=== PATIENT | female | born 1965 | race Caucasian/White ===

== ENCOUNTER 2023-03-28 11:08 | Outpatient (CLI) | payer MEDICARE, SELFPAY ==
[2023-03-28 12:14] LABS: Anion Gap 8 mmol/L (8-16); Blood Urea Nitrogen 11 mg/dL (7-17); Carbon Dioxide 27 mmol/L (22-30); Chloride 101 mmol/L (98-107); Estimated Glomerular Filt Rate > 60; Glucose 108 mg/dL (65-110); Potassium 3.8 mmol/L (3.4-5.0); Sodium 136 mmol/L (137-145)
== END 2023-03-28 11:09 | disposition home or self-care (01) ==
LOC: ANHSURGERY 11:13
PROVIDERS: Anesthesiology; PCP Physician Assistant; Visit Provider Plastic Surgery
DX: Z01.818 Encounter for other preprocedural examination (principal); I10 Essential (primary) hypertension
CPT/HCPCS: 36415; 80048

== ENCOUNTER 2023-03-30 00:29 | Day surgery (SDC) | payer MEDICARE, SELFPAY ==
[2023-03-24 09:28] VITALS: BMI 24.2
--- NOTE | 2023-03-24 09:45 | PC.NURSE ---
Report to the Outpatient Waiting Room, entrance under the green pavilion located off [facility], at time __0600__ on date _03/30/23_. Planned Procedure Time: __0730_. Time changes happen often and if your time is changed the preop area will call you the afternoon before. - You and your visitor will be asked to self-screen and do not enter if you have any COVID symptoms. - A mask is optional within the hospital at this time. Patients may have clear liquids (water, carbonated beverages, clear teas, apple juice) until 3 hours prior to surgery with a maximum of 20 ounces. - No food from midnight until time of surgery - Infants may have breast milk until 4 hours before surgery, formula 6 hours prior to surgery. - Children will be allowed to drink immediately following surgery. If applicable, please bring a bottle or sippy cup to assist with drinking. Juice, water, soda, and popsicles are readily available. For infants on formula, please bring formula the day of surgery. Pacifiers are allowed. Take the following medications with a SIP of water the morning of surgery: BUPROPION, DULOXITINE, GABAPENTIN, LAMOTRIGINE, PAIN PILL IF NEEDED DO NOT STOP ANY OF YOUR OTHER PRESCRIPTION MEDICATIONS PRIOR TO SURGERY ?EXCEPT THE FOLLOWING Medications to discontinue per physician ___VITAMINS AND SUPPLIMENTS Date to take last dose___03/27/23 Please no make-up, nail kazakh, hairspray, perfume, deodorant, or body powder the day of surgery. No jewelry (including any body piercings) or valuables the day of surgery, leave them at home. Please take a shower or bath the night before, or the morning of, surgery with an antibacterial soap. Wear comfortable, loose fitting clothing. Children are encouraged to wear pajamas. - Jewelry must be removed prior to entering the operating room. Rings and piercings that are not removed may be cut off. - The hospital will not accept responsibility for valuables. - Please leave all valuables, including medications, at home the day of surgery. If you are going home after surgery, a licensed sweeper driver must drive you home. - NO public transportation without another adult if you receive anesthesia. - We recommend that an adult stay with you for 24 hours following discharge. - We also recommend that you do not drive, make important decision, drink alcoholic beverages, or take any drugs that were not prescribed by your health care provider for at least 24 hours after your discharge time. For Pediatric surgeries, we recommend two adults accompany the child home. Follow any additional instructions given to you from your surgeon. If you or anyone in your household have experienced Covid symptoms in the past week, please notify your surgeon or the nurse liaison at the phone number below for possible testing. Telephone instructions given to _PATIENT_and asked if any additional questions and then verbalized understanding. Patient advised to call surgeon office or pre surgery nurse liaison [phone] if any additional questions.
[2023-03-30 06:10] VITALS: BP 122/79; PULSE 75; RESP 16; TEMP 36.6; O2SAT 100; BMI 24.6
--- NOTE | 2023-03-30 06:29 | WPDANESEPPF ---
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, R midline tibia Patient Data Age: 57 Gender: F Height: 1.57 m Weight: 60 kg Allergies Allergy/AdvReac Type Severity Reaction Status Date / Time Sulfa (Sulfonamide Allergy Unknown Vomiting Verified 03/30/23 06:25 Antibiotics) Home Medications Medication Instructions Recorded Confirmed Type atenolol 50 mg-chlorthalidone 25 1 tablet PO DAILY 10/25/19 03/24/23 History mg tablet gabapentin 600 mg tablet 600 mg PO TID 10/25/19 03/24/23 History oxycodone-acetaminophen 5 mg-325 1 tablet PO Q4H PRN Pain 10/25/19 03/24/23 History mg tablet potassium chloride 10 mEq 20 meq PO BID 10/25/19 03/24/23 History tablet,extended release (Klor-Con) pyridoxine (vitamin B6) 100 mg 100 mg PO DAILY 10/25/19 03/24/23 History tablet simvastatin 20 mg tablet 20 mg PO DAILY 10/25/19 03/24/23 History medical maijuana 1 inh PO HS 11/02/21 03/24/23 History bupropion HCl 200 mg tablet,12 hr 200 mg PO BID 03/24/23 03/24/23 History sustained-release (Wellbutrin SR) cholecalciferol (vitamin D3) 125 125 mcg PO DAILY 03/24/23 03/24/23 History mcg (5,000 unit) tablet (Vitamin D3) duloxetine 60 mg capsule,delayed 60 mg PO BID 03/24/23 03/24/23 History release ginkgo biloba 60 mg tablet 60 mg PO DAILY 03/24/23 03/24/23 History lamotrigine 150 mg tablet 150 mg PO DAILY 03/24/23 03/24/23 History Patient hx anesthesia problems: none Family hx anesthesia problems: none Results Review: All pre-operative results and documents have been reviewed as part of the pre-operative evaluation. [facility] Past Medical History Medical History Depression Right bundle branch block Vaginal delivery x 2 Surgical History Surgical History H/O neck surgery History of back surgery History of bladder surgery History of carpal tunnel surgery History of elbow surgery History of endometrial ablation History of tubal ligation Hx of pelvic surgery Hx of tonsillectomy S/P knee surgery S/P shoulder surgery Family History Family History Mother Family history of elevated blood lipids Cerebrovascular accident Family history of diabetes mellitus in first degree relative Family history of malignant neoplasm of cervix Grandparent Family history of malignant neoplasm of breast Father Family history of seizure disorder Social History Social History Smoking packs per day: 0.5 Smoking cigarettes per day: 10.0 Years smoked: 40 Smoking pack-years: 20.00 Smoking status: Current every day smoker Tobacco type: cigarettes and e-cigarettes/vaping Second hand tobacco smoke exposure: No Alcohol intake: current Alcohol use details: SOCIAL MOSTLY DURING THE SUMMER Substance use: current Substance use type: marijuana Other substance usage details: MEDICAL DAILY IN EVENING Lack of Transportation: No Lack of Food: Never True Current Housing: I Have Housing Concerned About Future Housing: No Difficulty Paying Gas/Electric Bills: No Difficulty Paying for Meds: No Currently Unemployed: No Education: Trade/Vocational Certificate Difficulty w/ Childcare or Family Care: No Living arrangements: alone Additional living arrangements comments: RECENTLY LOST HER Mary Lou Toure Final PreProcedure Day of Procedure 03/16
[2023-03-30] MEDS: LACTATED RINGERS 1,000 ML 30 ML IV CONT (06:40)
--- NOTE | 2023-03-30 07:15 | SUR.PREOP ---
0715- Made Dr. Chávez aware SCD's and knee high JEN's deferred for patient due to procedure.
--- NOTE | 2023-03-30 07:15 | WPDHPUPDATE1 ---
History and Physical Update Update Date/Time: 03/30/23 07:15 History and Physical has been reviewed, including an updated exam of the patient. There are NO changes in the patient's condition. Risks, benefits, and alternatives have been discussed and questions answered. Patient agrees to proceed with procedure.
--- NOTE | 2023-03-30 08:03 | SUR.OPER ---
Two frozen samples were sent down to pathology per MD's request. Each sample was taken from the sterile field and prepared for transfer by [email or web address], Ranjeet Orellana RN. Samples were transported to main lab by MAURY Linder. Samples were received by Barbie in pathology. This information was telephoned to room 6 by MAURY Linder and confirmed by myself, Ranjeet Orellana RN.
[2023-03-30] MEDS: LIDO 1%/EPINEPHRINE 1:100,000 50 ML VIAL INFILTRATE (08:08)
[2023-03-30 09:11] VITALS: BP 95/73; PULSE 80; RESP 16; O2SAT 100
[2023-03-30] MEDS: oxyCODONE HCL (*CRX) 5 MG TAB IR PO (09:32)
[2023-03-30 09:40] VITALS: BP 108/55; PULSE 81; RESP 16; O2SAT 97
--- NOTE | 2023-03-30 09:45 | P.OP_ITS ---
Procedure Note - Detailed Date of Procedure 03/30/23 Pre-op Diagnosis squamous cell ca L sup pretibia, R midline tibia Post-op Diagnosis Same Procedure Performed 2 cm excision of squamous cell carcinoma of the right distal midline pre tibia with frozen section and full-thickness skin graft 6 sq cm. 3 cm excision of squamous cell carcinoma keratoacanthoma type left superior pre tibia with frozen section and intermediate repair 7 cm. Surgeon Arturo Chávez MD White Kid Buffer Nasreen Anesthesia MAC Indications Biopsy diagnosis Description of Procedure The 2 biopsy sites on the patient's legs were marked in preop with her consent. We discussed donor sites and she left that up to me. She was taken to the operating room where she was placed supine on the operating table. She was given IV sedation. The lower extremities were prepped and draped in the usual fashion. The donor site was chosen on the right upper thigh. Openings were made through the drape on the right upper thigh and the right distal midline pre tibia and the left superior pretibia. The biopsy areas were measured and marked for circular excisions to rid the excision on the right was to be 2 cm in diameter and on the left 3 cm in diameter. Each area was infiltrated with 1% lidocaine with epinephrine. The specimen on the right was taken as a circular ellipse carried to the periosteum. It was marked at the superior aspect with suture for 12:00 p.m. and sent for frozen section. Bleeding points were coagulated. Saline dressing was applied. Attention was turned to the left leg. The left leg the circular excision measuring 3 cm in diameter was taken also to the periosteum. That specimen was marked with a suture for its superior aspect as well. The deep aspect of the specimen was inked with black. That specimen sent for frozen section. The pathology report on each piece confirmed the diagnoses of noted preoperatively and the margins were said to be free. A donor site on the right side was marked and anesthetized. It was determined that the larger wound on the superior aspect of the left pretibial could be undermined and closed with Vicryl and glue. The smaller excision on the right distal midline pre tibia could not be closed directly. A skin graft was harvested from the right thigh partially defatted and inset with chromic suture in the periphery and with quilting stitches. The graft site was then dressed with Aquacel Ag Tegaderm fluffed gauze and 3 in Coban wrap. The donor site on the right side was undermined and closed with intradermal 2-0 Vicryl sutures and skin glue to close the surface. On the left superior pre tibia site closure was accomplished with 2-0 Vicryl intradermal sutures and skin glue to the surface. No dressings were applied to the right thigh or the left pre tibia. The patient was discharged from the operating room in stable condition. She has instructions in wound care and follow-up. She has hydrocodone 05/325 at home. No antibiotics were utilized. Estimated Blood Loss -10.0 Tourniquet Time 0 Drains No Packing No Pathology Yes Complications No immediate complications Condition Stable Disposition Same day
[2023-03-30 10:10] VITALS: BP 118/56; PULSE 74; RESP 16; O2SAT 100
== END 2023-03-30 10:32 | disposition home or self-care (01) ==
PROVIDERS: PCP Physician Assistant; Visit Provider Plastic Surgery
PROC: (CPT 11602; principal; 2023-03-30 07:30)
DX: C44.729 Squamous cell carcinoma of skin of left lower limb, including hip (principal); C44.722 Squamous cell carcinoma of skin of right lower limb, including hip; L73.8 Other specified follicular disorders; L82.1 Other seborrheic keratosis; F32.A Depression, unspecified; F17.210 Nicotine dependence, cigarettes, uncomplicated; F12.90 Cannabis use, unspecified, uncomplicated; Z79.891 Long term (current) use of opiate analgesic; Z98.890 Other specified postprocedural states; Z86.79 Personal history of other diseases of the circulatory system; Z80.49 Family history of malignant neoplasm of other genital organs; Z80.3 Family history of malignant neoplasm of breast; Z82.49 Family history of ischemic heart disease and other diseases of the circulatory system
CPT/HCPCS: 11602; 11603; 12032; 15220; 88305; 88331; A9270; J2250; J2405; J2704; J3010; J7120